=== PATIENT | female | born 1965 | race Caucasian/White ===

== ENCOUNTER 2019-08-06 13:23 | Emergency (ER) | payer BC ==
[~2019-08-06] VITALS: Ht 157.5 cm; Wt 95.5 kg
[2019-08-06] MEDS ORDERED: CYMB1CAP4 PO (13:32)
[2019-08-06] MEDS ORDERED: LEVO2TA PO (13:32)
[2019-08-06] MEDS ORDERED: DICL50TAB PO (13:32)
[2019-08-06] MEDS ORDERED: HYDR25TAB PO (13:32)
[2019-08-06] MEDS ORDERED: ATEN50TA2 PO (13:32)
[2019-08-06] MEDS ORDERED: NS 500 ML IV ONE (14:00)
[2019-08-06 14:24] LABS: BASO # 0.1 10^3/uL (0.0-0.2); BASO % 1.2 % (0.0-1.0); EOS # 0.4 10^3/uL (0.0-0.5); EOS % 4.6 % (0.0-3.0); HEMATOCRIT 40.1 % (36.0-47.0); HEMOGLOBIN 12.6 g/dl (12.0-15.5); LYMPH # 2.6 10^3/uL (1.5-5.0); LYMPH % 30.1 % (24.0-44.0); MEAN CORPUSCULAR HEMOGLOBIN 26.6 pg (27.0-33.0); MEAN CORPUSCULAR HGB CONC 31.4 g/dl (32.0-36.5); MEAN CORPUSCULAR VOLUME 84.6 fl (80.0-96.0); MONO # 0.6 10^3/uL (0.0-0.8); MONO % 7.2 % (0.0-5.0); NEUTROPHILS # 4.8 10^3/uL (1.5-8.5); NEUTROPHILS % 56.5 % (36.0-66.0); PLATELET COUNT, AUTOMATED 390 10^3/uL (150-450); RED BLOOD COUNT 4.74 10^6/uL (4.00-5.40); WHITE BLOOD COUNT 8.5 10^3/uL (4.0-10.0)
[2019-08-06 14:48] LABS: BLOOD UREA NITROGEN 20 MG/DL (7-18); CARBON DIOXIDE LEVEL 29 MEQ/L (21-32); CHLORIDE LEVEL 104 MEQ/L (98-107); CK-MB VALUE MASS < 1.0 NG/ML (<3.6); CPK CREATINE PHOSPHOKINASE 43 U/L (26-192); CREATININE FOR GFR 0.89 MG/DL (0.55-1.30); GLOMERULAR FILTRATION RATE > 60.0 (>51); GLUCOSE, FASTING 104 MG/DL (70-100); MB/CK RELATIVE INDEX 2.33 (< OR =4); SODIUM LEVEL 139 MEQ/L (136-145); TROPONIN I < 0.02 NG/ML (< 0.10)
[2019-08-06] MEDS ORDERED: ISOVUE-370 76% 100ML VIAL (Q9967) As Ordered ONE (14:56)
[2019-08-06] MEDS ORDERED: IBUPROFEN 800 MG TAB PO ONE (16:45)
[2019-08-06] MEDS ORDERED: BENZONATATE 100 MG CAP PO ONE (17:30)
[2019-08-06] MEDS ORDERED: IBUP80TA PO (17:56)
[2019-08-06] MEDS ORDERED: TESS100C PO (17:56)
[2019-08-06 18:06] VITALS: BP 141/77
--- NOTE | 2019-08-07 06:57 | REP ---
REASON FOR EXAM: Chest pain. All priors were reviewed, the latest 04/06/2013, which is the latest prior. CONTRAST: 100 mL Isovue 370. There is excellent visualization of the pulmonary arterial vasculature. There are no focal filling defects present that would be considered consistent with pulmonary emboli. There are no pleural or pericardial effusions. The thoracic aorta is within normal limits and essentially unchanged from the prior exam. There is no mediastinal or hilar adenopathy. The imaged upper abdomen is within normal limits. The imaged osseous structures are within normal limits. Evaluation of the lung christie show no new abnormal nodules, masses, or opacities. 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 This is benign. There is an unchanged nodule in the right lung lower lobe CP angle. IMPRESSION: 1. There is no evidence of a pulmonary embolus. 2. There is no evidence of acute disease. Stable nodules as described above. Electronically Signed by Bob Devi DO 08/07/2019 12:45 P
== END 2019-08-06 18:09 | disposition home or self-care (01) ==
LOC: M ED 13:23
DX: J00 Acute nasopharyngitis [common cold] (principal); E86.0 Dehydration; B34.8 Other viral infections of unspecified site; I10 Essential (primary) hypertension; E03.9 Hypothyroidism, unspecified; F39 Unspecified mood [affective] disorder; K21.9 Gastro-esophageal reflux disease without esophagitis; K90.0 Celiac disease; Z79.899 Other long term (current) drug therapy; Z79.890 Hormone replacement therapy
CPT/HCPCS: 36415; 71275; 80048; 82550; 82553; 84484; 85025; 96360; 96361; 99284; Q9967